=== PATIENT | female | born 1975 | race Asian ===

== ENCOUNTER 2018-01-28 17:25 | Inpatient (IN) | payer SELFPAY ==
--- NOTE | 2018-01-28 17:41 | EDPHY ---
General Time Seen by Provider: 01/28/18 17:31 Narrative: CHIEF COMPLAINT: M1 HISTORY OF PRESENT ILLNESS: Patient presents from incarceration after being discharged/released. There is an M1 form completed by mental health professional stated patient is gravely disabled. The details are contained within the M1 and the patient will not provide any information herself. She will answer my questions regarding her demographics but will not answer any questions regarding her health her mental health. She will however say that she is not suicidal. No other information is provided by her. No modifying factors obtainable. No other associated complaints obtainable from this patient. PSYCHIATRIC DIAGNOSES: Documented schizophrenia PRIOR PSYCHIATRIC EVALUATIONS: Unknown M1/DETAINER: Prior to arrival at 3:27 p.m. REVIEW OF SYSTEMS: Ten systems reviewed and are negative unless otherwise noted in the HPI EXAMINATION General Appearance: Alert, no distress Head: normocephalic, atraumatic Eyes: Pupils equal and round, no conjunctival pallor or injection ENT, Mouth: Mucous membranes moist Neck: Normal inspection, supple, non-tender Respiratory: Lungs are clear to auscultation Cardiovascular: Regular rate and rhythm. No murmur Gastrointestinal: Abdomen is soft and nontender Back: non-tender, no bony abnormalities Neurological: GCS 15. A&O, nonfocal Skin: Warm and dry, no rash Extremities: Nontender, no pedal edema Psychiatric: Flat affect. Denies SI. Denies HI. DIFFERENTIAL DIAGNOSES: Including but not limited to schizophrenia, depression, anergy, dysthymia, grave disability MDM: 5:35 p.m. M1 hold due to grave disability. Patient reportedly has schizophrenia and was expressing lack of self-care. The licensed mental health professional the completed the M1 hold stated that the patient was not taking her medication appropriately. The patient will not provide much information. She is cooperating with workup but will not provide any useful information. She remains under secured observation on the hold with labs currently being drawn. 6:20 p.m. Patient is medically cleared for mental health evaluation at this time. 8:00 p.m. Patient has been evaluated by [facility] and they recommend inpatient care. She has been accepted to [address] [place] [address] Cheung. Emtala has been completed and signed by Dr. Shaw. She will be transferred by ambulance. She remains calm and cooperative in no acute distress. SUPERVISION: Patient was independently examined, but I discussed the case with my secondary supervising physician Dr. Shaw - Objective Vital Signs: Initial Vital Signs Temperature (C) 99.7 F 01/28/18 17:25 Heart Rate 95 01/28/18 17:25 Respiratory Rate 20 01/28/18 17:25 Blood Pressure 155/100 H 01/28/18 17:25 O2 Sat (%) 96 01/28/18 17:25 O2 Delivery Mode Room Air Allergies/Adverse Reactions: No Known Allergies Allergy (Unverified 01/28/18 17:49) Home Medications: Medication Instructions Recorded LORazepam [Ativan (*)] 1 mg PO BID 01/28/18 Quetiapine Fumarate [Seroquel] 200 mg PO HS 01/28/18 Temazepam [Restoril 15 MG (*)] 30 mg PO HSPRN PRN 01/28/18 Laboratory Results: Laboratory Results 01/28/18 17:48 01/28/18 17:48 01/28/18 01/28/18 01/28/18 17:48 17:48 17:48 WBC 8.27 10^3/uL 10^3/uL (3.80-9.50) RBC 4.69 10^6/uL 10^6/uL (4.18-5.33) Hgb 14.4 g/dL g/dL (12.6-16.3) Hct 43.8 % % (38.0-47.0) MCV 93.4 fL fL (81.5-99.8) MCH 30.7 pg pg (27.9-34.1) MCHC 32.9 g/dL g/dL (32.4-36.7) RDW 13.4 % % (11.5-15.2) Plt Count 300 10^3/uL 10^3/uL (150-400) MPV 9.2 fL fL (8.7-11.7) Neut % (Auto) 65.0 % % (39.3-74.2) Lymph % (Auto) 23.8 % % (15.0-45.0) Fillmore % (Auto) 8.7 % % (4.5-13.0) Eos % (Auto) 1.7 % % (0.6-7.6) Baso % (Auto) 0.4 % % (0.3-1.7) Nucleat RBC Rel Count 0.0 % % (0.0-0.2) Absolute Neuts (auto) 5.38 10^3/uL 10^3/uL (1.70-6.50) Absolute Lymphs (auto) 1.97 10^3/uL 10^3/uL (1.00-3.00) Absolute Monos (auto) 0.72 10^3/uL 10^3/uL (0.30-0.80) Absolute Eos (auto) 0.14 10^3/uL 10^3/uL (0.03-0.40) Absolute Basos (auto) 0.03 10^3/uL 10^3/uL (0.02-0.10) Absolute Nucleated RBC 0.00 10^3/uL 10^3/uL (0-0.01) Immature Gran % 0.4 % % (0.0-1.1) Immature Gran # 0.03 10^3/uL 10^3/uL (0.00-0.10) Sodium 137 mEq/L mEq/L (135-145) Potassium 3.8 mEq/L mEq/L (3.5-5.2) Chloride 104 mEq/L mEq/L (97-110) Carbon Dioxide 21 mEq/l L mEq/l (22-31) Anion Gap 12 mEq/L mEq/L (8-16) BUN 13 mg/dL mg/dL (7-23) Creatinine 0.6 mg/dL mg/dL (0.6-1.0) Estimated GFR > 60 Glucose 94 mg/dL mg/dL (70-100) Calcium 9.1 mg/dL mg/dL (8.5-10.4) Beta HCG, Qual NEGATIVE Urine Opiates Screen Urine Barbiturates Ur Phencyclidine Scrn Ur Amphetamine Screen U Benzodiazepines Scrn Urine Cocaine Screen U Marijuana (THC) Screen Ethyl Alcohol < 10 mg/dL mg/dL (0-10) 01/28/18 17:30 WBC RBC Hgb Hct MCV MCH MCHC RDW Plt Count MPV Neut % (Auto) Lymph % (Auto) Fill[place] % (Auto) Eos % (Auto) Baso % (Auto) Nucleat RBC Rel Count Absolute Neuts (auto) Absolute Lymphs (auto) Absolute Monos (auto) Absolute Eos (auto) Absolute Basos (auto) Absolute Nucleated RBC Immature Gran % Immature Gran # Sodium Potassium Chloride Carbon Dioxide Anion Gap BUN Creatinine Estimated GFR Glucose Calcium Beta HCG, Qual Urine Opiates Screen NEGATIVE (NEGATIVE) Urine Barbiturates NEGATIVE (NEGATIVE) Ur Phencyclidine Scrn NEGATIVE (NEGATIVE) Ur Amphetamine Screen NEGATIVE (NEGATIVE) U Benzodiazepines Scrn NON-NEGATIVE H (NEGATIVE) Urine Cocaine Screen NEGATIVE (NEGATIVE) U Marijuana (THC) Screen NEGATIVE (NEGATIVE) Ethyl Alcohol Departure - Departure Disposition: [facility] IP Clinical Impression: GRAVE DISABILITY Schizophrenia Qualifiers: Schizophrenia type: other Qualified Code(s): F20.89 - Other schizophrenia; F20.8 - Other schizophrenia Condition: Fair Referrals: NONE *PRIMARY CARE P,. [Primary Care Provider] - As per Instructions
[2018-01-28 18:04] LABS: PLATELET COUNT 300 10^3/uL (150-400)
[2018-01-28] MEDS ORDERED: MAG HYDROX/AL HYDROX/SIMETH 30 ML UDCUP PO PRN (22:18)
[2018-01-28] MEDS ORDERED: NICOTINE POLACRILEX 2 MG GUM B PRN (22:18)
[2018-01-28] MEDS ORDERED: ACETAMINOPHEN 325 MG TAB PO PRN (22:18)
[2018-01-28] MEDS ORDERED: MAGNESIUM HYDROXIDE 30 ML UDCUP PO PRN (22:19)
[2018-01-28] MEDS: LORazepam 0.5 MG TAB PO PRN (22:23)
[2018-01-28] MEDS: QUEtiapine FUMARATE 100 MG TAB PO SCH (22:24)
[2018-01-29] MEDS: LORazepam 0.5 MG TAB PO PRN (00:44)
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
[2018-01-29] MEDS: NICOTINE 21 MG/24 HR PATCH TD SCH (14:14)
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
[2018-01-29] MEDS: QUEtiapine FUMARATE 100 MG TAB PO SCH (20:02)
[2018-01-29] MEDS ORDERED: RISPERIDONE 1 MG ODT TAB SL SCH (21:00)
[2018-01-30] MEDS: NICOTINE 21 MG/24 HR PATCH TD SCH (09:30)
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
[2018-01-30] MEDS: OLANZapine DISINTEGR 5 MG TAB PO PRN (15:58)
[2018-01-30] MEDS: RISPERIDONE 1 MG ODT TAB SL SCH (20:21)
[2018-01-30] MEDS: LORazepam 0.5 MG TAB PO PRN (21:35)
[2018-01-30] MEDS ORDERED: LORazepam 2 MG/ML INJ IM PRN (22:44)
[2018-01-30] MEDS ORDERED: LORazepam 1 MG TAB PO ONE (22:45)
[2018-01-30] MEDS ORDERED: diphenhydrAMINE 50 MG CAP PO ONE (22:45)
[2018-01-30] MEDS ORDERED: HALOPERIDOL 5 MG TAB PO ONE (22:45)
[2018-01-31] MEDS: LORazepam 0.5 MG TAB PO PRN ×2 (01:34→05:46)
[2018-01-31] MEDS: OLANZapine DISINTEGR 5 MG TAB PO PRN ×2 (01:34→05:47)
[2018-01-31] MEDS: NICOTINE 21 MG/24 HR PATCH TD SCH (08:43)
[2018-01-31] MEDS: RISPERIDONE 1 MG ODT TAB SL SCH (08:44)
[2018-01-31] MEDS ORDERED: OLANZapine DISINTEGR 10 MG TAB PO PRN (13:01)
[2018-01-31] MEDS ORDERED: OLANZapine 10 MG/2 ML VIAL IM PRN ×2 (13:01)
[2018-01-31] MEDS ORDERED: LORazepam 2 MG/ML INJ IM PRN (13:01)
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
[2018-01-31] MEDS: LITHIUM CARBONATE ER 300 MG TAB PO SCH ×2 (14:14→20:09)
[2018-01-31] MEDS: LORazepam 1 MG TAB PO SCH (20:09)
[2018-01-31] MEDS ORDERED: RISPERIDONE 2 MG ODT TAB SL SCH (21:00)
[2018-02-01] MEDS: NICOTINE 21 MG/24 HR PATCH TD SCH (08:30)
[2018-02-01] MEDS: LORazepam 1 MG TAB PO SCH (08:30)
[2018-02-01] MEDS: LITHIUM CARBONATE ER 300 MG TAB PO SCH ×2 (08:31→21:06)
[2018-02-01] MEDS ORDERED: LORazepam 1 MG TAB PO PRN (10:23)
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
[2018-02-01] MEDS ORDERED: LORazepam 1 MG TAB PO SCH (21:00)
[2018-02-01] MEDS ORDERED: RISPERIDONE 1 MG ODT TAB SL SCH (21:00)
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
[2018-02-02] MEDS: LITHIUM CARBONATE ER 300 MG TAB PO SCH ×2 (08:52→18:29)
[2018-02-02] MEDS: NICOTINE 21 MG/24 HR PATCH TD SCH (08:52)
[2018-02-02] MEDS: LORazepam 1 MG TAB PO SCH (20:11)
[2018-02-03] MEDS: NICOTINE 21 MG/24 HR PATCH TD SCH (08:09)
[2018-02-03] MEDS: LITHIUM CARBONATE ER 300 MG TAB PO SCH (08:10)
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
[2018-02-03] MEDS: LORazepam 1 MG TAB PO SCH (20:08)
[2018-02-03] MEDS: LITHIUM CARBONATE 600 MG CAP PO SCH (20:09)
[2018-02-04] MEDS: NICOTINE 21 MG/24 HR PATCH TD SCH (10:52)
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
[2018-02-04] MEDS: LITHIUM CARBONATE 600 MG CAP PO SCH (20:50)
[2018-02-04] MEDS: LORazepam 1 MG TAB PO SCH (20:50)
[2018-02-05] MEDS: NICOTINE 21 MG/24 HR PATCH TD SCH ×2 (08:41→08:55)
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
[2018-02-05] MEDS: LITHIUM CARBONATE 600 MG CAP PO SCH (21:00)
[2018-02-05] MEDS: LORazepam 1 MG TAB PO SCH (21:00)
[2018-02-06] MEDS: NICOTINE 21 MG/24 HR PATCH TD SCH (08:33)
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
[2018-02-06] MEDS: LORazepam 1 MG TAB PO SCH (21:06)
[2018-02-06] MEDS: LITHIUM CARBONATE 600 MG CAP PO SCH (21:07)
[2018-02-07 06:39] VITALS: BP 115/66; PULSE 83; RESP 16; TEMP 98.1; O2SAT 93
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
[2018-02-07] MEDS: NICOTINE 21 MG/24 HR PATCH TD SCH (13:49)
== END 2018-02-07 15:48 | disposition home or self-care (01) | DRG 885 ==
LOC: EEVIPCON 17:25 → BBEH 21:50
PROVIDERS: ADMIT Psychiatry & Neurology Psychiatry; ATTEND Psychiatry & Neurology Psychiatry
DX: F25.0 Schizoaffective disorder, bipolar type (principal); T50.996A Underdosing of other drugs, medicaments and biological substances, initial encounter
CPT/HCPCS: 80305; G0480